=== PATIENT | female | born 1975 | race Caucasian/White ===

== ENCOUNTER 2018-04-23 22:01 | Emergency (ER) | payer BC ==
--- NOTE | 2018-04-24 00:04 | ER Document Report ---
ED Eye Complaint - General Chief Complaint: Eye Problem Stated Complaint: EYE PAIN Time Seen by Provider: 04/23/18 23:50 TRAVEL OUTSIDE OF THE [place] IN LAST 30 DAYS: No - HPI Notes: 42-year-old female presents with right eye injury. Patient was smoking when a "Terry" from the cigarette accidentally went into her right eye. Complains of burning stinging pain. Sudden onset, nonradiating. Does not wear corrective lenses or contacts. No other modifying factors, no other associated symptoms, no other provocative or palliative factors. - Related Data Allergies/Adverse Reactions: No Known Allergies Allergy (Unverified 07/17/14 21:12) Past Medical History - Social History Smoking Status: Current Every Day Smoker Family History: Reviewed & Not Pertinent - Medical History Medical History: Negative Review of Systems - Review of Systems Notes: Review of systems as in the history of present illness, otherwise negative x 10 systems. Physical Exam - Notes Notes: General: Well devloped, no acute distress. HEENT: Normocephalic, atraumatic. Pupils equal round reactive to light. Mucosa moist. No JVD. Right conjunctival injection is noted Chest: No trauma, normal excursion. Respiratory: Good air exchange, normal excursion. Cardiac: Regular rhythm Abdomen: Soft, benign. Nondistended. Back: No asymmetry or gross abnormality. Motor: Grossly normal power and tone. Neurologic: Alert, nonfocal. Vascular: Well perfused Skin: No petechiae or purpura Course - Re-evaluation Re-evalutation: 04/24/18 00:03 Well-appearing female isolated injury. Plan to proceed with anesthesia forcing staining to evaluate for renal injury, reassess. 04/24/18 00:33 Tetracaine is applied, fluorescein stain is applied, evaluation with Jaeger lamp shows no dye uptake. Patient treated with oral analgesics, advised to use artificial tears, outpatient follow-up. Admonished to quit smoking. Discharge - Discharge Clinical Impression: Corneal injury Qualifiers: Encounter type: initial encounter Laterality: right Qualified Code(s): S05.8X1A - Other injuries of right eye and orbit, initial encounter Disposition: HOME, SELF-CARE Instructions: Conjunctivitis ([facility])
[2018-04-24] MEDS ORDERED: TETRACAINE HCL 0.5% OPH SOLN 2 ML ONE (00:16)
[2018-04-24] MEDS ORDERED: TRAMADOL HCL 50 MG TABLET PO ONE (00:32)
[2018-04-24 01:05] VITALS: BP 151/92
== END 2018-04-24 00:59 | disposition home or self-care (01) ==
LOC: ER 22:01
DX: S05.8X1A Other injuries of right eye and orbit, initial encounter (principal); W22.8XXA Striking against or struck by other objects, initial encounter; F17.210 Nicotine dependence, cigarettes, uncomplicated
CPT/HCPCS: 99283

== ENCOUNTER 2020-05-16 02:21 | Emergency (ER) | payer BC ==
[2020-05-16 02:29] VITALS: BP 137/101
--- NOTE | 2020-05-16 04:32 | ER Document Report ---
ED Head/Face/Scalp Injury - General Chief Complaint: Fall Injury Stated Complaint: FALL/NOSE INJURY Time Seen by Provider: 05/16/20 04:22 Primary Care Provider: HERB RIDER MD [Primary Care Provider] - Follow up as needed AYSHA LONDON DO [ASSOCIATE] - Follow up in 3-5 days Notes: Patient is a 44-year-old female that comes emergency department for chief complaint of a fall just before arrival. Patient states that she tripped on her feet and landed on the floor in her house. She states she landed on her face. She states that after come to the emergency department she started noticing some pain in her neck and she has also developed a headache. She denies focal numbness or weakness, incontinence, passing out, vomiting, visual changes. Patient admits to drinking alcohol tonight. Patient is not on blood thinner, only past medical history reported is hypertension. TRAVEL OUTSIDE OF THE [place] IN LAST 30 DAYS: No - Related Data Allergies/Adverse Reactions: No Known Allergies Allergy (Unverified 07/17/14 21:12) Home Medications: amlodipine. hctz Past Medical History - General Information source: Patient - Social History Smoking Status: Current Every Day Smoker Chew tobacco use (# tins/day): No Frequency of alcohol use: Social Drug Abuse: None Lives with: Family Family History: Reviewed & Not Pertinent Renal/ Medical History: Denies: Hx Peritoneal Dialysis - Immunizations Immunizations up to date: Yes Hx Diphtheria, Pertussis, Tetanus Vaccination: Yes Review of Systems - Review of Systems Constitutional: No symptoms reported EENT: See HPI Cardiovascular: No symptoms reported Respiratory: No symptoms reported Gastrointestinal: No symptoms reported Genitourinary: No symptoms reported Female Genitourinary: No symptoms reported Musculoskeletal: See HPI Skin: See HPI Hematologic/Lymphatic: No symptoms reported Neurological/Psychological: See HPI Physical Exam - Vital signs Vitals: Temp Pulse Resp BP Pulse Ox 97.9 F 122 H 24 H 137/101 H 98 05/16/20 02:26 05/16/20 02:26 05/16/20 02:26 05/16/20 02:05/16/20 02:26 - Notes Notes: GENERAL: Alert, interacts well. Patient appears slightly nervous but she does not appear to be in distress HEAD: There is soft tissue swelling at the top of the nose at the bridge, there is a 1 cm superficial laceration over the bridge of the nose which is vertical, no other signs of trauma over the head noted. EYES: Pupils equal, round, and reactive to light. Extraocular movements intact. ENT: Oral mucosa moist, tongue midline. Oropharynx unremarkable. Airway patent. There is a small amount of dried epistaxis in both nasal passages, there is swelling at the bridge of the nose, however there is no septal hematoma. Ears unremarkable. NECK: Full range of motion. Supple. Trachea midline. No lymphadenopathy. LUNGS: Clear to auscultation bilaterally, no wheezes, rales, or rhonchi. No respiratory distress. Non-tender chest wall. HEART: Regular rate and rhythm. No murmur ABDOMEN: Soft, non-tender. Non-distended. EXTREMITIES: Moves all 4 extremities spontaneously. No edema, normal radial and dorsalis pedis pulses bilaterally. No cyanosis. BACK: no cervical, thoracic, lumbar midline tenderness. No saddle anesthesia, normal distal neurovascular exam. Moves all extremities in full range of motion. NEUROLOGICAL: Alert and oriented x3. Normal speech. Cranial nerves II through XII grossly intact. Strength 5/5 in all extremities. PSYCH: Normal affect, normal mood. SKIN: Warm, dry, normal turgor. No rashes or lesions noted. Course - Re-evaluation Re-evalutation: Patient does not appear to be clinically intoxicated. She is not tachycardic on my exam but she is mildly anxious. She does have soft tissue swelling of the nose with a small superficial laceration over the nose, and recently noted to have epistaxis but there is no current epistaxis. No other signs of trauma noted. Patient has some generalized tenderness over the neck, no neurological deficits reported, unremarkable neurological exam. Because of her EtOH with the injuries CTs of the head/face/neck were performed, this shows nasal bone fractures without displacement, no other concerning findings. Wound repaired with Dermabond after discussing options. Discussed details with patient, discussed ENT follow-up, discussed head injury precautions, discussed return precautions. Patient states appreciation and agreement. Patient is going home with family and will be staying with him tonight. - Vital Signs Vital signs: Temp Pulse Resp BP Pulse Ox 97.9 F 105 H 18 137/101 H 100 05/16/20 02:26 05/16/20 06:21 05/16/20 06:21 05/16/20 02:26 05/16/20 06:21 Procedures - Laceration/Wound Repair Nasal bridge Wound length (cm): 1 Wound's Depth, Shape: Superficial, Linear Laceration pre-procedure: Sterile PPE donned, Sterile drapes applied, Shur-Clens applied Wound explored: Clean Wound Repaired With: Dermabond Layer Closure?: No Post-procedure NV exam normal: Yes Complications: No Discharge - Discharge Clinical Impression: Neck pain Facial injury Qualifiers: Encounter type: initial encounter Qualified Code(s): S09.93XA - Unspecified injury of face, initial encounter Head injury Qualifiers: Encounter type: initial encounter Qualified Code(s): S09.90XA - Unspecified injury of head, initial encounter Fractured nose Qualifiers: Encounter type: initial encounter Fracture type: closed Qualified Code(s): S02.2XXA - Fracture of nasal bones, initial encounter for closed fracture Condition: Stable Disposition: HOME, SELF-CARE Additional Instructions: The CAT scan imaging shows fracture of the nasal bones on both sides as we discussed. Do not blow the nose, take the pain medication as prescribed if needed, call the listed referral on Sunday for close follow-up and additional management. The wound has been closed with Dermabond, this will protect the area, this should fall off in about 5-7 days on its own. You can clean the area but avoid soaking or scrubbing the area. If the dermabond has not come off on its own after a week you can remove this by applying a topical antibiotic. Follow-up with primary care. Return for any concerning symptoms including signs of infection such as pain, developing redness, fever, or any other concerning or worsening symptoms. You most likely will have some developing soreness in your neck/shoulders and he may have postconcussive symptoms. Take the Robaxin muscle relaxer if needed, apply heat to your neck/shoulders, and rest. See additional instructions below. Return to the emergency department for any concerning or worsening symptoms. Head Injury Precautions At this point, there is no evidence that your head injury is serious. Observation is necessary, however. Limit activity for the first 24 hours. During the first 24 hours, check to see approximately every two to three hours that the patient is easily arousable, responds normally, and can perform common tasks such as walking without difficulty. Contact your doctor or go to the hospital if any of the following things occur: Persistent vomiting, difficulty in arousing the patient, worsening or continued headache, or failure to improve as expected. Head injuries can cause symptoms that persist for a few days or even a few weeks. Post-Concussion Syndrome Post-concussion syndrome often follows a mild head injury. Dizziness, mild nausea, mild headache, trouble concentrating, and a general sense of "not being right" may persist for a week or two. This is a frequent complication of concussion. However, if the symptoms worsen, or new symptoms develop, you should be re-examined by the physician. There is no specific cure for post-concussion syndrome. You can take mild pain medication such as ibuprofen or acetaminophen. While you should not drive if you are dizzy, you can get back to your regular activities as quickly as the symptoms will allow. And while vigorous exercise may worsen the headache, mild physical activity often is helpful. Sitting and thinking about your symptoms will worsen them. If difficulties continue, you may need referral for special therapy to help you regain full mental function. Call the physician if you are worsening, or if symptoms are still present in one week. Report any new symptoms immediately. Prescriptions: Oxycodone HCl/Acetaminophen [Percocet 5-325 mg Tablet] 1 tab PO TID PRN #12 tab PRN Reason: Forms: Return to Work Referrals: HERB RIDER MD [Primary Care Provider] - Follow up as needed AYSHA LONDON DO [ASSOCIATE] - Follow up in 3-5 days
--- NOTE | 2020-05-16 05:08 | RADIOLOGY REPORT (SQ) ---
EXAM DESCRIPTION: CT CERVICAL SPINE WITHOUT IV CONTRAST COMPLETED DATE/TME: 05/16/2020 04:31 CLINICAL HISTORY: 44 years, Female, fall, facial injury, ETOH, neck pain COMPARISON: None. TECHNIQUE: 601 Images stored on PACS. All CT scanners at this facility use dose modulation, iterative reconstruction, and/or weight based dosing when appropriate to reduce radiation dose to as low as reasonably achievable (ALARA). [facility]: Dose Right [facility]: CareDose [facility]: Dose Right [facility]: Teradose 4D [facility]: [employer] LIMITATIONS: None. FINDINGS: Evaluation of spinal canal contents limited due to CT technique. However, vertebral body height and alignment is preserved. The disc spaces are maintained. The prevertebral soft tissues are normal. IMPRESSION: Unremarkable CT cervical spine TECHNICAL DOCUMENTATION: Quality ID # 436: Final reports with documentation of one or more dose reduction techniques (e.g., Automated exposure control, adjustment of the mA and/or kV according to patient size, use of iterative reconstruction technique) copyright 2011 [employer]- All Rights Reserved
--- NOTE | 2020-05-16 05:11 | RADIOLOGY REPORT (SQ) ---
EXAM DESCRIPTION: CT HEAD WITHOUT IV CONTRAST COMPLETED DATE/TME: 05/16/2020 04:30 CLINICAL HISTORY: 44 years, Female, fall, facial injury, ETOH COMPARISON: None. TECHNIQUE: 195 Images stored on PACS. All CT scanners at this facility use dose modulation, iterative reconstruction, and/or weight based dosing when appropriate to reduce radiation dose to as low as reasonably achievable (ALARA). [facility]: Dose Right [facility]: CareDose [facility]: Dose Right [facility]: Teradose 4D [facility]: [employer] LIMITATIONS: None. FINDINGS: The globes are intact. Nondisplaced nasal bone fractures anteriorly. Paranasal sinuses and mastoid air cells are well aerated. No displaced or depressed skull fracture. No acute intracranial hemorrhage. CT is limited for evaluation of acute infarct. No CT evidence for large or territorial acute infarct. No mass or midline shift IMPRESSION: No acute intracranial abnormality. Nondisplaced nasal bone fractures TECHNICAL DOCUMENTATION: Quality ID # 436: Final reports with documentation of one or more dose reduction techniques (e.g., Automated exposure control, adjustment of the mA and/or kV according to patient size, use of iterative reconstruction technique) copyright 2010 [employer]- All Rights Reserved
--- NOTE | 2020-05-16 05:11 | RADIOLOGY REPORT (SQ) ---
CLINICAL HISTORY: fall, facial injury, ETOH, bleeding nose COMPARISON: None. TECHNIQUE: CT MAXILLOFACIAL WITHOUT IV CONTRAST on 05/16/2020 4:31 AM CDT This exam was performed according to our departmental dose-optimization program, which includes automated exposure control, adjustment of the mA and/or kV according to patient size and/or use of iterative reconstruction technique. FINDINGS: There are mildly displaced fractures of the anterior nasal bones bilaterally. The paranasal sinuses are clear. Orbits and globes are unremarkable. Mastoid air cells are clear. Temporomandibular joints are intact. There is a laceration and contusion overlying the anterior nasal bones. IMPRESSION: Anterior nasal bone fractures.
== END 2020-05-16 06:22 | disposition home or self-care (01) ==
LOC: ER 02:21
DX: S02.2XXA Fracture of nasal bones, initial encounter for closed fracture (principal); S01.21XA Laceration without foreign body of nose, initial encounter; S09.90XA Unspecified injury of head, initial encounter; W01.0XXA Fall on same level from slipping, tripping and stumbling without subsequent striking against object, initial encounter; Y92.009 Unspecified place in unspecified non-institutional (private) residence as the place of occurrence of the external cause; M54.2 Cervicalgia; F17.200 Nicotine dependence, unspecified, uncomplicated; I10 Essential (primary) hypertension
CPT/HCPCS: 70450; 70486; 72125; 99284